=== PATIENT | female | born 1955 | race Caucasian/White ===

== ENCOUNTER 2018-01-31 17:13 | Emergency (ER) | payer MEDICARE, MEDICAID ==
[~2018-01-31] VITALS: Ht 165.1 cm; Wt 81.2 kg
[2018-01-31] MEDS ORDERED: PRAMIPEXOLE DIHYDROCHLORIDE PO (17:43)
--- NOTE | 2018-01-31 18:57 | NUR ---
Patient discharged to home in stable conditon. Written and verbal after care instructions given. Patient verbalizes understanding of instructions.pt walks in steady gait, no sign of distress. pt with family member.
== END 2018-01-31 18:58 | disposition home or self-care (01) ==
LOC: ER 17:13
DX: R05 Cough (principal); Z79.899 Other long term (current) drug therapy
CPT/HCPCS: 99283; A4663

== ENCOUNTER 2020-03-28 17:00 | Inpatient (IN) | payer MEDICARE, OTHER ==
[~2020-03-28] VITALS: Ht 160 cm; Wt 86.2 kg
[~2020-03-28 17:00] MED LIST: PRAMIPEXOLE DIHYDROCHLORIDE PO
[2020-03-28] MEDS ORDERED: PRAM0.253 PO (17:24)
--- NOTE | 2020-03-28 17:29 | NUR ---
Dr Cortes at the bedside for MSE.
--- NOTE | 2020-03-28 17:55 | NUR ---
Patient is resting comfortably in bed with eyes closed, NAD noted.
[2020-03-28 17:58] LABS: CARBON DIOXIDE 25 mmol/L (21-32); CHLORIDE 109 mmol/L (98-107); GLUCOSE 103 mg/dL (74-106); POTASSIUM 3.9 mmol/L (3.5-5.1); UREA NITROGEN, BLOOD 16 mg/dL (7-18)
[2020-03-28 18:10] LABS: ALANINE AMINOTRANSFERASE 15 U/L (14-59); ALKALINE PHOSPHATASE 92 U/L (50-136); ASPARTATE AMINOTRANSFERASE 19 U/L (15-37); BILIRUBIN,DIRECT < 0.1 mg/dL (0.0-0.2); BILIRUBIN,TOTAL 0.1 mg/dL (0.2-1.0); TOTAL PROTEIN, SERUM 6.4 g/dL (6.4-8.2)
[2020-03-28 18:19] LABS: BASOPHILS # (AUTO) 0.1 K/uL (0.0-8.0); BASOPHILS % (AUTO) 1.3 % (0.0-2.0); EOSINOPHILS # (AUTO) 0.1 K/uL (0.0-0.7); EOSINOPHILS % (AUTO) 1.2 % (0.0-7.0); LYMPHOCYTES # (AUTO) 3.1 K/uL (20.0-40.0); LYMPHOCYTES % (AUTO) 37.1 % (20.5-51.5); MEAN CORPUSCULAR HEMOGLOBIN 22.5 uug (24.7-32.8); MEAN CORPUSCULAR HGB CONC 31 g/dL (32.3-35.6); MEAN CORPUSCULAR VOLUME 71.8 fL (75.5-95.3); MONOCYTES # (AUTO) 0.6 K/uL (2.0-10.0); MONOCYTES % (AUTO) 7.1 % (0.0-11.0); NEUTROPHILS # (AUTO) 4.5 K/uL (1.8-8.9); NEUTROPHILS % (AUTO) 53.3 % (38.5-71.5); PLATELET COUNT (AUTO) 455 K/uL (179-408); WHITE BLOOD COUNT (AUTO) 8.4 K/uL (3.8-11.8)
--- NOTE | 2020-03-28 18:20 | NUR ---
Pt out of ER for Xray.
[2020-03-28 18:27] LABS: RED BLOOD CELL COUNT(AUTO) 2.33 MIL/uL (3.63-4.92)
[2020-03-28 18:28] LABS: HEMATOCRIT 16.8 % (31.2-41.9); HEMOGLOBIN 5.3 g/dL (10.9-14.3)
[2020-03-28 18:46] LABS: *BILIRUBIN,URIN NEGATIVE (NEGATIVE); *BLOOD, URINE NEGATIVE (NEGATIVE); *CLARITY,URINE CLEAR (CLEAR); *COLOR,URINE LIGHT YELLOW (YELLOW); *KETONES,URINE NEGATIVE (NEGATIVE); *UROBILINOGEN,URINE 0.2 E.U./dl (NORMAL); LEUKOCYTE ESTERASE ,URINE 2+ (NEGATIVE); NITRITE, URINE NEGATIVE (NEGATIVE); UGLUCOSE NEGATIVE (NEGATIVE)
--- NOTE | 2020-03-28 19:05 | NUR ---
Called [facility] to page Harrison Duval NP.
--- NOTE | 2020-03-28 19:18 | NUR ---
Dr. Adi Ding on panel call with Harrison Duval DNP. Patient accepted for admission to [facility], diagnosis: anemia.
[2020-03-28] MEDS ORDERED: IV NS 1000 ML 1,000 ML IV PRN (20:17)
[2020-03-28] MEDS ORDERED: Z GUARD REMEDY PASTE 57 GM TUBE TOP PRN (20:30)
[2020-03-28] MEDS ORDERED: MORPHINE SULFATE 2 MG/1 ML DISP.SYRIN IV PRN (20:30)
[2020-03-28] MEDS ORDERED: ONDANSETRON 4 MG/2 ML VIAL IV PRN (20:30)
[2020-03-28] MEDS ORDERED: MAGNESIUM HYDROXIDE 30 ML LIQUID UDC PO PRN (20:30)
--- NOTE | 2020-03-28 20:30 | NUR ---
Blood transfusion started at this time, two nurse verified
[2020-03-28 20:34] LABS: IRON, SERUM 8 ug/dL (50-175)
[2020-03-28 20:41] LABS: BACTERIA,URINE 1 /HPF (NONE SEEN); SQUAMOUS EPITHELIAL CELL,UR FEW /HPF (NONE SEEN)
[2020-03-28 20:48] LABS: FERRITIN 4 ng/mL (8-252)
--- NOTE | 2020-03-28 21:15 | NUR ---
Report given to Radha LANG Tele.
--- NOTE | 2020-03-28 21:41 | NUR ---
No adverse reactions to blood transfusion noted
[2020-03-28] MEDS ORDERED: CEFTRIAXONE 1 G in IV DEXTROSE 5% 50 ML IV SCH (22:00)
--- NOTE | 2020-03-28 22:00 | NUR ---
Pt. admitted to Tele unit room 305 , under care of YOBANY Duval, blood transfusion passed on the for receiving nurse to finish. Belongs List completed and all belongings sent with patient t new room
--- NOTE | 2020-03-28 22:01 | NUR ---
RECEIVED PT FROM ER VIA [facility]. UNDER THE CARE OF DR. HIDALGO. DX; ANEMIA. PT AWAKE, ALERT AND ORIENTEDX4. CARE HOME ASSESSMENT DONE. ADMISSION PROCESS AND CARE PLAN INITIATED. BLOOD TRANSFUSION ONGOING AND ABOUT TO FINISH. PT IN NO ACUTE DISTRESS. SAFETY AND COMFORT PROVIDED. WILL CONTINUE TO MONITOR.
--- NOTE | 2020-03-28 22:02 | NUR ---
PT HAS COMPRESSION STOCKINGS. SHE SAID HER DOCTOR WANTS HER TO WEAR IT UNTIL SUNDAY WHERE SHE WILL HAVE HER DR ZELAYA.
[2020-03-28 22:20] VITALS: BP 128/61
--- NOTE | 2020-03-28 22:36 | NUR ---
DR. HIDALGO ORDERED HEMOGLOBIN AND HEMATOCRIT STAT FOR THE PT. INFORMED PT FINISHED HER ONE PRBC. NO ADVERSE REACTION NOTED. PT IN NO ACUTE DISTRESS. WILL CONTINUE TO MONITOR.
[2020-03-28 22:47] LABS: LYMPHOCYTES % (MANUAL) 27 % (20-40); MONOCYTES % (MANUAL) 11 % (2-10); NEUTROPHILS % (MANUAL) 62 % (42-75)
[2020-03-28 23:22] LABS: HEMOGLOBIN 6.4 g/dL (10.9-14.3)
[2020-03-28 23:23] LABS: HEMATOCRIT 20.3 % (31.2-41.9)
--- NOTE | 2020-03-28 23:23 | NUR ---
Lab/Humberto called and reported STAT lab result for Hgb-6.4 and Hct - 20.3. Dr. Duval informed. Awaiting for any new order.
[2020-03-28] MEDS ORDERED: CEFTRIAXONE 1 G VIAL ONE (23:25)
--- NOTE | 2020-03-28 23:31 | NUR ---
Dr. Duval with order to give additional unit of PRBC. Order noted and will carry out. RICKEY canales who is assigned to pt made aware of Dr. Duval's order and states understanding.
[2020-03-28] MEDS: PANTOPRAZOLE SODIUM 40 MG TABLET.DR PO SCH (23:58)
[2020-03-28] MEDS: SUCRALFATE 1 G TABLET PO SCH (23:58)
[2020-03-29] VITALS (12 sets, daily range): BP systolic 122–136; BP diastolic 57–82
--- NOTE | 2020-03-29 03:05 | NUR ---
PT TOLERATED THE BLOOD TRANSFUSION. NO ADVERSE REACTION NOTED. Will continue to monitor.
--- NOTE | 2020-03-29 06:06 | NUR ---
PT SLEPT INTERMITTENTLY. PT IN NO ACUTE DISTRESS. PT COMPLAINING OF HER RESTLESS LEG SYNDROME. PRESCRIBED MEDICATION GIVEN AND PT TOLERATED IT WELL. SAFETY AND COMFORT PROVIDED. WILL ENDORSE TO INCOMING NURSE FOR CONTINUITY OF CARE,
[2020-03-29 06:28] LABS: CREATININE 1.1 mg/dL (0.6-1.3); MAGNESIUM 2.1 mg/dL (1.8-2.4); PHOSPHOROUS 3.6 mg/dL (2.5-4.9); POTASSIUM 3.6 mmol/L (3.5-5.1)
[2020-03-29 06:30] LABS: THYROID STIMULATING HORMONE 0.533 mIU/mL (0.358-3.740)
[2020-03-29] MEDS: SUCRALFATE 1 G TABLET PO SCH ×3 (06:30→16:30)
--- NOTE | 2020-03-29 07:18 | NUR ---
PT MEDICATION MIRAPEX BROUGHT DOWN TO PHARMACY.
[2020-03-29 07:19] LABS: BASOPHILS # (AUTO) 0.1 K/uL (0.0-8.0); EOSINOPHILS # (AUTO) 0.1 K/uL (0.0-0.7); EOSINOPHILS % (AUTO) 1.6 % (0.0-7.0); MEAN CORPUSCULAR HEMOGLOBIN 24.5 uug (24.7-32.8); MONOCYTES # (AUTO) 0.7 K/uL (2.0-10.0); NEUTROPHILS # (AUTO) 5.1 K/uL (1.8-8.9); RED BLOOD CELL COUNT(AUTO) 2.93 MIL/uL (3.63-4.92)
[2020-03-29 07:21] LABS: BASOPHILS % (AUTO) 0.7 % (0.0-2.0); HEMATOCRIT 22.2 % (31.2-41.9); LYMPHOCYTES # (AUTO) 2.8 K/uL (20.0-40.0); LYMPHOCYTES % (AUTO) 31.6 % (20.5-51.5); MEAN CORPUSCULAR HGB CONC 32 g/dL (32.3-35.6); MEAN CORPUSCULAR VOLUME 75.8 fL (75.5-95.3); MONOCYTES % (AUTO) 8.4 % (0.0-11.0); NEUTROPHILS % (AUTO) 57.7 % (38.5-71.5); PLATELET COUNT (AUTO) 385 K/uL (179-408); WHITE BLOOD COUNT (AUTO) 8.8 K/uL (3.8-11.8)
[2020-03-29 07:23] LABS: HEMOGLOBIN 7.2 g/dL (10.9-14.3)
--- NOTE | 2020-03-29 08:00 | NUR ---
received pt. resting in bed alert oriented x4. pt. denies pain/ discomfort. pt. denies sob/ difficulty breathing. pt. saturating well on room air. IV in L hand 20 gauge intact patent running prescribed fluid. pt. had small BM able to use for stool occult. Pt. NPO except meds. HEALTH AND SAFETY TECH Harrison Duval at bedside. safety measures in place. call light within reach. will continue to monitor pt.
[2020-03-29] MEDS: PANTOPRAZOLE SODIUM 40 MG TABLET.DR PO SCH ×2 (08:20→17:00)
--- NOTE | 2020-03-29 12:20 | NUR ---
pt. is upset and wants to eat. Spoke to PLATER BARREL Harrison Duval he is aware and is waiting for GI Dr. Uriarte for stool OB results and possible endoscopy. Updated pt. on plan. pt. understands and just wants to know a time. Will call Dr. Uriarte to see what time he will be able to see pt. pt. stable.
[2020-03-29 12:32] LABS: *OCCULT BLOOD STOOL NEGATIVE (NEGATIVE)
[2020-03-29] MEDS ORDERED: SOD FERRIC GLUC COMPLX/SUCROSE 125 MG in IV NORMAL SALINE 100 ML IV SCH (14:00)
--- NOTE | 2020-03-29 16:43 | NUR ---
pt. is upset with care and wants to eat. printed out educational information on hemoglobin, anemia, and iron deficiency. Tried to figure out what time/ date pt. will be seen by GI doctor. called dr. arndt's office twice with no answer, messaged from charge nurse phone with no answer. pt. wants to leave AMA. She states she has her PCP appointment this week and will have them assess her issues. WRECKING CRANE ENGINE OPERATOR Harrison Duval aware pt. wants to leave AMA.
--- NOTE | 2020-03-29 17:52 | NUR ---
pt. left AMA. pt. signed AMA paperwork. AMA discharge paperwork signed. IV removed. ID band removed.
[2020-03-29] MEDS ORDERED: PRAMIPEXOLE 0.25 MG TABLET PO SCH (18:00)
== END 2020-03-29 17:50 | disposition left against medical advice (07) | DRG 812 ==
LOC: ER 17:07 → TELE3 21:15
PROVIDERS: ADMIT Nurse Practitioner Acute Care; ATTEND Nurse Practitioner Acute Care
PROC: 30233N1 Transfusion of Nonautologous Red Blood Cells into Peripheral Vein, Percutaneous Approach (ICD-10-PCS; principal; 2020-03-28)
DX: D50.9 Iron deficiency anemia, unspecified (principal); E87.0 Hyperosmolality and hypernatremia; N39.0 Urinary tract infection, site not specified; G25.81 Restless legs syndrome; R53.1 Weakness; D47.3 Essential (hemorrhagic) thrombocythemia; K44.9 Diaphragmatic hernia without obstruction or gangrene; E66.9 Obesity, unspecified; Z68.33 Body mass index [BMI] 33.0-33.9, adult; E11.9 Type 2 diabetes mellitus without complications
CPT/HCPCS: 36415; 70030-TC; 71045; 83550; 83605; 83735; 84100; 84443; 85018; 85025; 85730; 86850; 86900; 86901; 86920; 87040; 87086; 93005; A4663; G0378; J0696; J2916; J3490; J7030; J7040; J7060; P9016-BL; P9021

== ENCOUNTER 2021-01-09 13:32 | Inpatient (IN) | payer MEDICARE, OTHER ==
[~2021-01-09] VITALS: Ht 162.6 cm; Wt 86.2 kg
[~2021-01-09 13:32] MED LIST changes: +PRAM0.253 PO; -PRAMIPEXOLE DIHYDROCHLORIDE PO
[2021-01-09] MEDS ORDERED: IV NORMAL SALINE 1000 ML BAG IV ONE (13:45)
--- NOTE | 2021-01-09 14:15 | NUR ---
Pt refused to have EKG, Dr De Souza made aware.
[2021-01-09 14:18] LABS: ABG BASE EXCESS -2.7 mmol/L; ABG HCO3 20.6 mmol/L; ABG PCO2 31.2 mmHg (35.0-45.0); ABG PH 7.437 (7.350-7.450); ABG SITE RIGHT RADIAL; ABG TOTAL HEMOGLOBIN 12.5 G/dL (12.0-16.0); MetHb 0.2 % (0.0-1.5); VENT MODE room air
[2021-01-09 14:27] LABS: *BILIRUBIN,URIN NEGATIVE (NEGATIVE); *CLARITY,URINE CLEAR (CLEAR); *COLOR,URINE YELLOW (YELLOW); *KETONES,URINE NEGATIVE (NEGATIVE); *UROBILINOGEN,URINE 0.2 E.U./dl (NORMAL); BASOPHILS # (AUTO) 0.2 K/uL (0.0-8.0); EOSINOPHILS # (AUTO) 0.1 K/uL (0.0-0.7); EOSINOPHILS % (AUTO) 0.7 % (0.0-7.0); HEMATOCRIT 35.4 % (31.2-41.9); HEMOGLOBIN 11.7 g/dL (10.9-14.3); LEUKOCYTE ESTERASE ,URINE NEGATIVE (NEGATIVE); LYMPHOCYTES # (AUTO) 2.4 K/uL (20.0-40.0); LYMPHOCYTES % (AUTO) 13.3 % (20.5-51.5); MEAN CORPUSCULAR HEMOGLOBIN 26.8 uug (24.7-32.8); MEAN CORPUSCULAR HGB CONC 33 g/dL (32.3-35.6); MEAN CORPUSCULAR VOLUME 81.4 fL (75.5-95.3); MONOCYTES # (AUTO) 1.7 K/uL (2.0-10.0); MONOCYTES % (AUTO) 9.4 % (0.0-11.0); NEUTROPHILS # (AUTO) 13.3 K/uL (1.8-8.9); NEUTROPHILS % (AUTO) 75.6 % (38.5-71.5); NITRITE, URINE NEGATIVE (NEGATIVE); PH,URINE 5.5 (5.0-8.0); RED BLOOD CELL COUNT(AUTO) 4.35 MIL/uL (3.63-4.92); UGLUCOSE NEGATIVE (NEGATIVE)
--- NOTE | 2021-01-09 14:28 | NUR ---
Dr De Souza at the bedside for MSE.
[2021-01-09 14:31] LABS: PLATELET COUNT (AUTO) 645 K/uL (179-408); WHITE BLOOD COUNT (AUTO) 17.6 K/uL (3.8-11.8)
[2021-01-09 14:43] LABS: *BLOOD, URINE TRACE (NEGATIVE)
[2021-01-09] MEDS ORDERED: IV NORMAL SALINE 500 ML IV ONE (14:45)
[2021-01-09] MEDS ORDERED: CEFTRIAXONE 1 G in IV DEXTROSE 5% 50 ML IV ONE (14:45)
[2021-01-09] MEDS ORDERED: ACETAMINOPHEN ES 500 MG TABLET PO ONE (14:45)
[2021-01-09] MEDS ORDERED: IV LACTATED RINGERS SOLUTION 1,000 ML IV PRN (14:45)
[2021-01-09] MEDS ORDERED: AZITHROMYCIN 250 MG TABLET PO ONE (14:45)
[2021-01-09] MEDS ORDERED: ACETAMINOPHEN ES 500 MG TABLET ONE (14:53)
[2021-01-09] MEDS ORDERED: AZITHROMYCIN 250 MG TABLET ONE (14:53)
[2021-01-09] MEDS ORDERED: CEFTRIAXONE 1 G VIAL ONE (14:53)
[2021-01-09 15:04] LABS: CREATININE 0.9 mg/dL (0.6-1.3)
[2021-01-09 15:20] LABS: BILIRUBIN,DIRECT 0.2 mg/dL (0.0-0.2); BILIRUBIN,TOTAL 0.4 mg/dL (0.2-1.0); TOTAL PROTEIN, SERUM 7.6 g/dL (6.4-8.2)
[2021-01-09 15:40] LABS: BACTERIA,URINE NONE SEEN /HPF (NONE SEEN); RBC,URINE 0-3 /HPF (0-3); WBC,URINE 0-3 /HPF (0-3)
[2021-01-09 15:41] LABS: SQUAMOUS EPITHELIAL CELL,UR NONE SEEN /HPF (NONE SEEN)
[2021-01-09] MEDS ORDERED: BUPRENORPHINE HCL 8 MG TAB.SUBL SL ONE (16:00)
[2021-01-09] MEDS ORDERED: MAGNESIUM HYDROXIDE 30 ML LIQUID UDC PO PRN (16:15)
[2021-01-09] MEDS ORDERED: ONDANSETRON 4 MG/2 ML VIAL IV PRN (16:15)
[2021-01-09] MEDS ORDERED: Z GUARD REMEDY PASTE 57 GM TUBE TOP PRN (16:15)
--- NOTE | 2021-01-09 16:20 | NUR ---
RECEIVED FOR ADMISSION 65 YEARS OLD FEMALE FROM EMERGENCY ROOM WITH DX OF PNEUMONIA BY LD TO ROOM 310 PLACED INTO BED FIXED AND MADE COMFORTABLE PATIENT IS ALERT AND ORIENTED ORIENTED TO ROOM AND FACILITY PROTOCOL HAS IVF IN PROGRESS TO HER RIGHT FOREARM ON O2 WITH SATS AT 95 PERCENT DIONNE GERARDO HERE WITH ORDERS.
[2021-01-09] MEDS: IV NS 1000 ML 1,000 ML IV PRN (16:44)
[2021-01-09 16:48] VITALS: BP 152/88
[2021-01-09] MEDS ORDERED: ENOXAPARIN SODIUM 40 MG/0.4 ML DISP.SYRIN SQ SCH (17:00)
[2021-01-09] MEDS: HYDROCODONE/APAP 5-325MG TABLET PO PRN (17:04)
[2021-01-09] MEDS: PRAMIPEXOLE 0.25 MG TABLET PO SCH (17:04)
--- NOTE | 2021-01-09 18:08 | NUR ---
PATIENT STATED THAT NORCO ORDERED WAS NOT EFFECTIVE DIONNE NOTIFIED AWAITING FOR ORDERS.
[2021-01-09] MEDS: HYDROMORPHONE 1 MG/1 ML DISP.SYRIN IV PRN ×2 (18:40→23:46)
--- NOTE | 2021-01-09 18:44 | NUR ---
MEDICATED WITH DILAUDID ONE MG NEW IV SITE INSERTED TO HER RIGHT WRIST GAUGE THE OLD ONE KEPT ON BEEPING EVEN THOUGH ITS PATENT.
--- NOTE | 2021-01-09 19:05 | NUR ---
Received patient sitting up in bed. Patient is A/O x4 and complaining of sharp right underbreast pain. Patient had already been given a [place] @1700 and a hydromorphone dose @1840. Patient told to try repositioning to see if that alleviates the pain. Patient not really compliant and just continues to complain without attempting repositioning. patient would also not allow direct assessment of the area by either me or her female MOBILE HOME SET UP PERSON. Other than this complaint. Patient is doing well, no other signs of distress or SOB.
--- NOTE | 2021-01-09 19:48 | NUR ---
I caught the patient with home medications. It is unclear how she was able to hide these without the ER and the floor nursing staff from finding them. I confiscated a bag with 2 bottles, but i suspect she may be hiding additional medication, though she denies this. I explained to the patient the seriousness of turning over allo medications as they may react with medications we are giving her during her stay. She understands the risks I explained and she is adamant that she DOES NOT have any additional pills. Patient will be going down to [place] soon and I will conduct a through search for medications hidden in her room while she is gone.
[2021-01-09 20:15] VITALS: BP 155/84
[2021-01-09] MEDS ORDERED: SWABABLE VALVE TRANSFER SET EA MC ONE (20:22)
[2021-01-09] MEDS ORDERED: IV NORMAL SALINE 250 ML IV ONE (20:22)
[2021-01-09] MEDS ORDERED: IOHEXOL 350 100 ML INFUS..BTL ONE (20:22)
--- NOTE | 2021-01-09 20:32 | NUR ---
Patient appears to complain of the right chest pain only when i am present. She seems to start complaining about the pain, grasping at the site, moaning, and complaining she cannot breathe, and the longer i stand there the worse it seems to get, however as soon as I step out of the room, this immediately stops and she picks up her cell phone and begins texting like nothing is wrong, no expressions of pain, no moaning, no grasping at the site, no signs of SOB or any distress whatsoever. I went back in to have the patient sign the consent for the CT angio, and the patient immediately began complaining of the pain, grasping at the site and complaining of difficulty breathing. Patient signed the consent and she was back on the phone before i had even got to the door on my way out, seemingly perfectly fine again. This nurse is not discounting that this pain exists, however it seems that the patient is making it out to be worse than it is. I explained that her CT may possibly show anything that is wrong with the site in an attempt to put her at ease.
--- NOTE | 2021-01-09 22:50 | NUR ---
Relayed results of the CT angio to Anila Jay NP. Orders to change Lovenox to 40mg prophylactic dose.
[2021-01-10 00:09] VITALS: BP 121/79
[2021-01-10 04:15] VITALS: BP 126/77
--- NOTE | 2021-01-10 04:56 | NUR ---
Patient's cough has turned productive with thick dark guzmán coloration. Specimen collected for culture.
[2021-01-10 06:31] LABS: BASOPHILS # (AUTO) 0.1 K/uL (0.0-8.0); BASOPHILS % (AUTO) 0.6 % (0.0-2.0); EOSINOPHILS # (AUTO) 0.2 K/uL (0.0-0.7); EOSINOPHILS % (AUTO) 1.3 % (0.0-7.0); HEMATOCRIT 30.9 % (31.2-41.9); LYMPHOCYTES # (AUTO) 2.3 K/uL (20.0-40.0); LYMPHOCYTES % (AUTO) 17.5 % (20.5-51.5); MEAN CORPUSCULAR HEMOGLOBIN 26.8 uug (24.7-32.8); MEAN CORPUSCULAR HGB CONC 32 g/dL (32.3-35.6); MEAN CORPUSCULAR VOLUME 82.9 fL (75.5-95.3); MONOCYTES # (AUTO) 1.2 K/uL (2.0-10.0); MONOCYTES % (AUTO) 9.4 % (0.0-11.0); NEUTROPHILS # (AUTO) 9.4 K/uL (1.8-8.9); NEUTROPHILS % (AUTO) 71.2 % (38.5-71.5); PLATELET COUNT (AUTO) 543 K/uL (179-408); RED BLOOD CELL COUNT(AUTO) 3.73 MIL/uL (3.63-4.92); WHITE BLOOD COUNT (AUTO) 13.2 K/uL (3.8-11.8)
[2021-01-10] MEDS: PANTOPRAZOLE SODIUM 40 MG TABLET.DR PO SCH (06:35)
[2021-01-10] MEDS ORDERED: PANTOPRAZOLE SODIUM 40 MG TABLET.DR PO SCH (07:00)
--- NOTE | 2021-01-10 07:30 | NUR ---
RECEIVED PATIENT IN BED AWAKE ALERT SITTING UP WITH FEET DANGLING ON THE FLOOR STATED THAT SHE IS MORE COMFORTABLE WHEN SITTING UP ON O2 WITH NO SOB AT THIS TIME.IVF IN PROGRESS ORDERED CALL LIGHTS AND PERSONAL BELONGINGS ARE WITHIN EASY REACH WILL CONTINUE TO OBSERVE.
[2021-01-10 07:33] LABS: CREATININE 0.8 mg/dL (0.6-1.3); MAGNESIUM 2.2 mg/dL (1.8-2.4); PHOSPHOROUS 3.6 mg/dL (2.5-4.9); POTASSIUM 4.4 mmol/L (3.5-5.1)
--- NOTE | 2021-01-10 08:28 | NUR ---
PATIENT SEEN AND EXAMINED BY ZAY AGUIRRE SPACE ENGINEER WITH HEW ORDERS AND NOTED.
[2021-01-10] MEDS: CYCLOBENZAPRINE HCL 10 MG TABLET PO PRN ×2 (08:36→18:13)
[2021-01-10] MEDS: IV NS 1000 ML 1,000 ML IV PRN (09:14)
[2021-01-10] MEDS: HYDROMORPHONE 1 MG/1 ML DISP.SYRIN IV PRN ×3 (09:20→20:57)
--- NOTE | 2021-01-10 10:00 | NUR ---
DR CROCKER HERE TO SEE PATIENT WITH NEW ORDERS AND NOTED.
[2021-01-10] MEDS: LIDOCAINE 5% PATCH TD SCH (10:15)
[2021-01-10] MEDS: IPRATROPIUM BROMIDE 0.5 MG/2.5 ML NEBU NEB SCH ×3 (11:26→20:04)
[2021-01-10] MEDS: ALBUTEROL SULFATE 2.5 MG/3 ML NEBU NEB SCH ×3 (11:27→20:04)
--- NOTE | 2021-01-10 11:27 | NUR ---
CALL RECEIVED FROM THE [employer] STATED WILL DO ABDOMINAL ULTRA SOUND IN THE MORNING STATED PATIENT HAS TO BE NOTHING BY MOUTH FOR AT LEAST 8 HOURS WILL EDUCATE PATIENT ON THE NEED FOR NPO AFTER MID NITE.
[2021-01-10 12:00] VITALS: BP 143/72
[2021-01-10] MEDS: AZITHROMYCIN IV 500 MG in IV DEXTROSE 5% 250 ML IV SCH (14:07)
[2021-01-10] MEDS: HYDROCODONE/APAP 5-325MG TABLET PO PRN (14:07)
[2021-01-10] MEDS: CEFTRIAXONE 1 G in IV DEXTROSE 5% 50 ML IV SCH (15:13)
[2021-01-10 16:00] VITALS: BP 134/80
[2021-01-10] MEDS: PRAMIPEXOLE 0.25 MG TABLET PO SCH (17:08)
--- NOTE | 2021-01-10 19:30 | NUR ---
RECEIVED PT AWAKE, ALERT AND ORIENTEDX4. PT IN NO ACUTE DISTRESS. IV INTACT. SAFETY AND COMFORT PROVIDED. WILL CONTINUE TO MONITOR.
[2021-01-10 20:00] VITALS: BP 129/67
[2021-01-10] MEDS: ACETAMINOPHEN 325 MG TABLET PO PRN (20:51)
[2021-01-10] MEDS: ENOXAPARIN SODIUM 40 MG/0.4 ML DISP.SYRIN SQ SCH (20:56)
--- NOTE | 2021-01-10 20:57 | NUR ---
DILAUDID 1MG PRN GIVEN TO THE PT FOR PAIN ON HER WAIST AND CHEST. PT TOLERATED IT WELL. WILL CONTINUE TO MONITOR.
--- NOTE | 2021-01-10 21:57 | NUR ---
PT STATED HER PAIN IS BETTER AFTER THE MEDICATION. PT STABLE. WILL CONTINUE TO MONITOR.
--- NOTE | 2021-01-10 22:00 | NUR ---
PT REFUSED HER LOVENOX MEDICATION STATED SHE DOESN'T WANT IT. THE MEDICATION WAS OPENED ALREADY SO I WILL WASTE IT IN THE MEDICATION ROOM WITH ANOTHER RN.
[2021-01-11 00:03] VITALS: BP 135/81
[2021-01-11] MEDS: IV NS 1000 ML 1,000 ML IV PRN ×2 (00:26→15:17)
[2021-01-11] MEDS: HYDROMORPHONE 1 MG/1 ML DISP.SYRIN IV PRN ×3 (01:34→19:51)
--- NOTE | 2021-01-11 01:34 | NUR ---
DILAUDID 1MG PRN GIVEN TO PT FOR HER PAIN ON HER CHEST AND WAIST.PT TOLERATED IT WELL. WILL CONTINUE TO MONITOR.
[2021-01-11 04:12] VITALS: BP 124/68
--- NOTE | 2021-01-11 06:10 | NUR ---
PT SLEPT INTERMITTENTLY. PT IN NO ACUTE DISTRESS. PRESCRIBED MEDICATION GIVEN AND PT TOLERATED IT WELL. IV INTACT. PT ON 2L NASAL CANNULA. PRN MEDICATIONS GIVEN. PT TOLERATED IT WELL. SAFETY AND COMFORT PROVIDED. ALL NEEDS ARE MET. WILL ENDORSE TO INCOMING NURSE FOR CONTINUITY OF CARE.
[2021-01-11] MEDS: PANTOPRAZOLE SODIUM 40 MG TABLET.DR PO SCH ×2 (07:00→16:37)
--- NOTE | 2021-01-11 07:00 | NUR ---
PROTONIX HELD BECAUSE PT IS ON NPO FOR ULTRASOUND ABDOMEN.
[2021-01-11 07:11] LABS: BASOPHILS # (AUTO) 0.1 K/uL (0.0-8.0); BASOPHILS % (AUTO) 0.5 % (0.0-2.0); BILIRUBIN,DIRECT 0.1 mg/dL (0.0-0.2); BILIRUBIN,TOTAL 0.4 mg/dL (0.2-1.0); CREATININE 0.7 mg/dL (0.6-1.3); EOSINOPHILS # (AUTO) 0.2 K/uL (0.0-0.7); EOSINOPHILS % (AUTO) 1.3 % (0.0-7.0); HEMATOCRIT 28.4 % (31.2-41.9); HEMOGLOBIN 9.3 g/dL (10.9-14.3); LYMPHOCYTES # (AUTO) 2.3 K/uL (20.0-40.0); LYMPHOCYTES % (AUTO) 18.2 % (20.5-51.5); MEAN CORPUSCULAR HEMOGLOBIN 27.2 uug (24.7-32.8); MEAN CORPUSCULAR HGB CONC 33 g/dL (32.3-35.6); MEAN CORPUSCULAR VOLUME 83.1 fL (75.5-95.3); MONOCYTES # (AUTO) 1.3 K/uL (2.0-10.0); MONOCYTES % (AUTO) 10.4 % (0.0-11.0); NEUTROPHILS # (AUTO) 8.8 K/uL (1.8-8.9); NEUTROPHILS % (AUTO) 69.6 % (38.5-71.5); PLATELET COUNT (AUTO) 576 K/uL (179-408); POTASSIUM 4.1 mmol/L (3.5-5.1); RED BLOOD CELL COUNT(AUTO) 3.42 MIL/uL (3.63-4.92); TOTAL PROTEIN, SERUM 6.7 g/dL (6.4-8.2); WHITE BLOOD COUNT (AUTO) 12.6 K/uL (3.8-11.8)
[2021-01-11] MEDS: ALBUTEROL SULFATE 2.5 MG/3 ML NEBU NEB SCH ×4 (09:10→19:41)
[2021-01-11] MEDS: IPRATROPIUM BROMIDE 0.5 MG/2.5 ML NEBU NEB SCH ×4 (09:10→19:41)
[2021-01-11] MEDS: LIDOCAINE 5% PATCH TD SCH (09:16)
--- NOTE | 2021-01-11 09:30 | NUR ---
ULTRA SOUND OF THE ABDOMEN COMPLETED ORDERED DIETARY NOTIFIED AND THEY WILL SEND HER BREAKFAST.
[2021-01-11] MEDS ORDERED: LACTULOSE 20 G/30 ML LIQUID UDC PO PRN (11:15)
[2021-01-11 11:48] VITALS: BP 153/83
[2021-01-11 12:00] VITALS: BP 149/85
[2021-01-11] MEDS: DOCUSATE SODIUM 100 MG CAPSULE PO SCH ×2 (12:23→20:02)
--- NOTE | 2021-01-11 13:02 | NUR ---
PATIENT SEEN AND EXAMINED BY KATHERINE GERARDO BOWLING BALL MOLDER WITH NEW ORDERS.
[2021-01-11] MEDS: AZITHROMYCIN IV 500 MG in IV DEXTROSE 5% 250 ML IV SCH (14:18)
[2021-01-11 14:35] LABS: HEPATITIS A AB, IgM NEGATIVE; HEPATITIS A AB, TOTAL NEGATIVE; HEPATITIS B SURFACE AB NON REACTIVE
[2021-01-11 16:00] VITALS: BP 149/85
[2021-01-11] MEDS: CEFTRIAXONE 1 G in IV DEXTROSE 5% 50 ML IV SCH (16:37)
[2021-01-11] MEDS: PRAMIPEXOLE 0.25 MG TABLET PO SCH (17:20)
--- NOTE | 2021-01-11 17:32 | NUR ---
REMAIN ON PAIN MANAGEMENT ORDERED OCCASSIONAL COUGH EPISODES AMBULATORY TO AND FROM THE BATHROOM WITH MIN ASSIST REMAIN ON ATB AND IVF ORDERED WITH NO ADVERSE OR ALLERGIC REACTIONS AT THIS TIME.MADE COMFORTABLE WILL CONTINUE TO OBSERVE NOT IN DISTRESS AT THIS TIME WILL CONTINUE TO OBSERVE.
[2021-01-11] MEDS: ACETAMINOPHEN 325 MG TABLET PO PRN (19:49)
[2021-01-11] MEDS: ENOXAPARIN SODIUM 40 MG/0.4 ML DISP.SYRIN SQ SCH (20:02)
[2021-01-11 20:06] VITALS: BP 151/72
--- NOTE | 2021-01-11 22:00 | NUR ---
PT REFUSED LIDODERM PATCH REMOVED
[2021-01-12 00:44] VITALS: BP 121/80
[2021-01-12] MEDS: HYDROMORPHONE 1 MG/1 ML DISP.SYRIN IV PRN ×6 (01:44→23:41)
[2021-01-12 04:30] VITALS: BP 142/77
[2021-01-12] MEDS: IV NS 1000 ML 1,000 ML IV PRN ×2 (04:55→21:04)
[2021-01-12] MEDS: PANTOPRAZOLE SODIUM 40 MG TABLET.DR PO SCH ×2 (05:10→16:17)
--- NOTE | 2021-01-12 05:20 | NUR ---
Patient rested well in between care; c/o pain and addressed accordingly with good results; R arm ivx2 dcd ; new iv to left forearm g 22; needs attended; continue to monitor; continue plan of care.
--- NOTE | 2021-01-12 07:35 | NUR ---
Received patient awake in bed. AOx4. on 2L O2 via NC. no signs of acute distress. patient with left FA #22 gauge with NS running at 75cc/hr. bed locked and in low position for safety. call light within reach. will continue to monitor.
[2021-01-12] MEDS: IPRATROPIUM BROMIDE 0.5 MG/2.5 ML NEBU NEB SCH ×4 (07:51→20:49)
[2021-01-12] MEDS: ALBUTEROL SULFATE 2.5 MG/3 ML NEBU NEB SCH ×4 (07:51→20:49)
[2021-01-12] MEDS: LIDOCAINE 5% PATCH TD SCH (08:40)
[2021-01-12] MEDS: DOCUSATE SODIUM 100 MG CAPSULE PO SCH ×2 (08:40→20:08)
[2021-01-12 11:32] VITALS: BP 162/91
[2021-01-12] MEDS: ACETAMINOPHEN 325 MG TABLET PO PRN ×2 (14:51→19:37)
[2021-01-12] MEDS: AZITHROMYCIN IV 500 MG in IV DEXTROSE 5% 250 ML IV SCH (15:04)
[2021-01-12 15:11] VITALS: BP 141/63
[2021-01-12] MEDS: CEFTRIAXONE 1 G in IV DEXTROSE 5% 50 ML IV SCH (16:10)
[2021-01-12] MEDS: PRAMIPEXOLE 0.25 MG TABLET PO SCH (17:03)
--- NOTE | 2021-01-12 18:30 | NUR ---
No significant changes during shift. AOx4. On 2L O2 via NC. Patient complained of pain. Pain medication given as ordered. Compliant with medication and care. Safety measures provided. Needs met. Will endorse to incoming shift.
--- NOTE | 2021-01-12 19:30 | NUR ---
RECEIVED PT IN NO ACUTE RESPIRATORY DISTRESS. IV INTACT.SAFETY AND COMFORT PROVIDED. PT COMPLAINING OF PAIN AND WANTS HER PAIN MEDICATION. WILL CONTINUE TO MONITOR.
--- NOTE | 2021-01-12 19:37 | NUR ---
TYLENOL PRN GIVEN FOR TEMPERATURE OF 99.5. COOLING MEASURES DONE. WILL CONTINUE TO MONITOR.
[2021-01-12] MEDS: ENOXAPARIN SODIUM 40 MG/0.4 ML DISP.SYRIN SQ SCH (20:09)
[2021-01-12 20:10] VITALS: BP 134/66
--- NOTE | 2021-01-12 21:05 | NUR ---
PT REFUSED LOVENOX MEDICATION.
--- NOTE | 2021-01-12 21:09 | NUR ---
AT 1936H DILAUDID PRN GIVEN FOR 10/10 PAIN SCALE FOR GENERALIZED PAIN. MEDICATION EFFECTIVE AFTER AN HOUR PER PT WAS SLEEPING COMFORTABLY. WILL CONTINUE TO MONITOR.
--- NOTE | 2021-01-12 21:30 | NUR ---
PT AFEBRILE. PT TEMPERATURE IS 98.9. WILL CONTINUE TO MONITOR.
[2021-01-12] MEDS ORDERED: LIDOCAINE 5% PATCH TD ONE (22:00)
[2021-01-12] MEDS ORDERED: CEFEPIME HCL 1 G VIAL ONE (22:33)
[2021-01-12] MEDS: CEFEPIME HCL 1 G in IV DEXTROSE 5% 50 ML IV SCH (22:43)
[2021-01-13] MEDS ORDERED: CEFEPIME HCL 1 G VIAL ONE (00:37)
[2021-01-13 04:10] VITALS: BP 109/63
[2021-01-13] MEDS: CEFEPIME HCL 1 G in IV DEXTROSE 5% 50 ML IV SCH ×3 (05:43→21:33)
--- NOTE | 2021-01-13 05:56 | NUR ---
PT SLEPT INTERMITTENTLY. PT IN NO ACUTE DISTRESS. IV INTACT. PRESCRIBED MEDICATION GIVEN AND PT TOLERATED IT WELL.PT GIVE DILAUDID PRN AT 2341H. PT TOLERATED IT WELL. AT 2148H JAN ABBOTT NP ORDERED ONE TIME LIDOCAINE PATCH FOR THE PT. PUT COLD COMPRESS ON THE BACK OF THE PT ASIDE FROM THE LIDOCAINE PATCH. PT IN NO ACUTE RESPIRATORY DISTRESS. SAFETY AND COMFORT PROVIDED. WILL ENDORSE TO INCOMING NURSE FOR CONTINUITY OF CARE.
[2021-01-13] MEDS: PANTOPRAZOLE SODIUM 40 MG TABLET.DR PO SCH ×2 (06:12→16:01)
[2021-01-13 07:02] LABS: CREATININE 0.8 mg/dL (0.6-1.3); MAGNESIUM 2.4 mg/dL (1.8-2.4); PHOSPHOROUS 3.1 mg/dL (2.5-4.9)
[2021-01-13] MEDS: ALBUTEROL SULFATE 2.5 MG/3 ML NEBU NEB SCH ×4 (07:35→20:40)
[2021-01-13] MEDS: IPRATROPIUM BROMIDE 0.5 MG/2.5 ML NEBU NEB SCH ×4 (07:35→20:40)
[2021-01-13] MEDS: DOCUSATE SODIUM 100 MG CAPSULE PO SCH ×2 (08:06→20:19)
[2021-01-13] MEDS: LIDOCAINE 5% PATCH TD SCH (08:06)
[2021-01-13] MEDS: HYDROCODONE/APAP 5-325MG TABLET PO PRN (08:45)
[2021-01-13 11:47] VITALS: BP 140/79
[2021-01-13] MEDS: IV NS 1000 ML 1,000 ML IV PRN (13:20)
[2021-01-13] MEDS: HYDROMORPHONE 1 MG/1 ML DISP.SYRIN IV PRN ×2 (13:26→19:38)
[2021-01-13] MEDS: AZITHROMYCIN IV 500 MG in IV DEXTROSE 5% 250 ML IV SCH (14:26)
[2021-01-13 15:18] LABS: BASOPHILS # (AUTO) 0.1 K/uL (0.0-8.0); BASOPHILS % (AUTO) 0.4 % (0.0-2.0); EOSINOPHILS # (AUTO) 0.3 K/uL (0.0-0.7); HEMATOCRIT 29.9 % (31.2-41.9); HEMOGLOBIN 9.7 g/dL (10.9-14.3); LYMPHOCYTES # (AUTO) 2.2 K/uL (20.0-40.0); LYMPHOCYTES % (AUTO) 15.5 % (20.5-51.5); MEAN CORPUSCULAR HEMOGLOBIN 26.8 uug (24.7-32.8); MEAN CORPUSCULAR HGB CONC 32 g/dL (32.3-35.6); MEAN CORPUSCULAR VOLUME 82.7 fL (75.5-95.3); MONOCYTES # (AUTO) 1.5 K/uL (2.0-10.0); MONOCYTES % (AUTO) 10.1 % (0.0-11.0); NEUTROPHILS # (AUTO) 10.3 K/uL (1.8-8.9); PLATELET COUNT (AUTO) 657 K/uL (179-408); RED BLOOD CELL COUNT(AUTO) 3.62 MIL/uL (3.63-4.92); WHITE BLOOD COUNT (AUTO) 14.4 K/uL (3.8-11.8)
[2021-01-13 15:56] VITALS: BP 163/83
[2021-01-13] MEDS: CYCLOBENZAPRINE HCL 10 MG TABLET PO PRN (17:04)
[2021-01-13] MEDS: PRAMIPEXOLE 0.25 MG TABLET PO SCH (17:04)
[2021-01-13 20:15] VITALS: BP 156/80
[2021-01-13] MEDS: ENOXAPARIN SODIUM 40 MG/0.4 ML DISP.SYRIN SQ SCH (20:19)
[2021-01-14] MEDS: HYDROMORPHONE 1 MG/1 ML DISP.SYRIN IV PRN ×3 (00:59→21:08)
[2021-01-14 04:20] VITALS: BP 118/53
--- NOTE | 2021-01-14 05:27 | NUR ---
Pt slept intermittently throughout the night. Pt coughed periodically, offered to try and obtain order for cough medication, pt declined. Encouraged to use incentive spirometer. Wheezing heard on lung auscultation. IV site intact and patent. Tolerated all medications given. Safety and comfort provided. No other issues or concerns at this time, will endorse to day shift.
[2021-01-14] MEDS: CEFEPIME HCL 1 G in IV DEXTROSE 5% 50 ML IV SCH ×3 (05:49→21:07)
[2021-01-14] MEDS: IV NS 1000 ML 1,000 ML IV PRN ×2 (05:51→21:15)
[2021-01-14] MEDS: PANTOPRAZOLE SODIUM 40 MG TABLET.DR PO SCH ×2 (06:04→16:12)
[2021-01-14] MEDS: IPRATROPIUM BROMIDE 0.5 MG/2.5 ML NEBU NEB SCH ×4 (07:28→19:46)
[2021-01-14] MEDS: ALBUTEROL SULFATE 2.5 MG/3 ML NEBU NEB SCH ×4 (07:29→19:46)
[2021-01-14] MEDS: DOCUSATE SODIUM 100 MG CAPSULE PO SCH ×2 (08:01→20:46)
[2021-01-14] MEDS: LIDOCAINE 5% PATCH TD SCH (08:01)
[2021-01-14] MEDS: HYDROCODONE/APAP 5-325MG TABLET PO PRN (11:12)
[2021-01-14 11:52] VITALS: BP 147/88
[2021-01-14 15:14] VITALS: BP 140/78
[2021-01-14] MEDS: PRAMIPEXOLE 0.25 MG TABLET PO SCH (17:38)
[2021-01-14 20:09] VITALS: BP 143/88
[2021-01-14] MEDS: BENZONATATE 100 MG CAPSULE PO PRN (20:46)
[2021-01-14] MEDS: ACETAMINOPHEN 325 MG TABLET PO PRN (20:46)
[2021-01-14] MEDS: ENOXAPARIN SODIUM 40 MG/0.4 ML DISP.SYRIN SQ SCH (20:52)
[2021-01-15 04:12] VITALS: BP 136/74
--- NOTE | 2021-01-15 05:13 | NUR ---
Pt slept intermittently throughout the night. Magdi Foster ordered for pt to help with cough. Tolerated well. Tolerated all medications given. Pain medications given periodically upon patient request. Oxygen at 2L, sating at 97%. Safety and comfort provided. No other issues or concerns at this time. Call light within reach. Will endorse to day shift.
[2021-01-15] MEDS: CEFEPIME HCL 1 G in IV DEXTROSE 5% 50 ML IV SCH ×3 (06:07→22:03)
[2021-01-15] MEDS: PANTOPRAZOLE SODIUM 40 MG TABLET.DR PO SCH ×2 (06:07→16:12)
[2021-01-15 06:18] LABS: BASOPHILS # (AUTO) 0.1 K/uL (0.0-8.0); BASOPHILS % (AUTO) 0.6 % (0.0-2.0); EOSINOPHILS # (AUTO) 0.3 K/uL (0.0-0.7); EOSINOPHILS % (AUTO) 2.2 % (0.0-7.0); HEMATOCRIT 28.3 % (31.2-41.9); HEMOGLOBIN 9.1 g/dL (10.9-14.3); LYMPHOCYTES # (AUTO) 2.3 K/uL (20.0-40.0); LYMPHOCYTES % (AUTO) 18.2 % (20.5-51.5); MEAN CORPUSCULAR HEMOGLOBIN 26.1 uug (24.7-32.8); MEAN CORPUSCULAR HGB CONC 32 g/dL (32.3-35.6); MEAN CORPUSCULAR VOLUME 81.3 fL (75.5-95.3); MONOCYTES # (AUTO) 1.4 K/uL (2.0-10.0); MONOCYTES % (AUTO) 10.7 % (0.0-11.0); NEUTROPHILS # (AUTO) 8.7 K/uL (1.8-8.9); NEUTROPHILS % (AUTO) 68.3 % (38.5-71.5); PLATELET COUNT (AUTO) 652 K/uL (179-408); RED BLOOD CELL COUNT(AUTO) 3.48 MIL/uL (3.63-4.92); WHITE BLOOD COUNT (AUTO) 12.8 K/uL (3.8-11.8)
[2021-01-15 06:32] LABS: CREATININE 0.8 mg/dL (0.6-1.3); PHOSPHOROUS 3.4 mg/dL (2.5-4.9); POTASSIUM 3.8 mmol/L (3.5-5.1)
[2021-01-15] MEDS: DOCUSATE SODIUM 100 MG CAPSULE PO SCH ×2 (08:01→20:57)
[2021-01-15] MEDS: LIDOCAINE 5% PATCH TD SCH (08:01)
[2021-01-15] MEDS: ALBUTEROL SULFATE 2.5 MG/3 ML NEBU NEB SCH ×4 (08:26→19:39)
[2021-01-15] MEDS: IPRATROPIUM BROMIDE 0.5 MG/2.5 ML NEBU NEB SCH ×4 (08:26→19:39)
[2021-01-15 12:00] VITALS: BP 135/56
[2021-01-15] MEDS: IV NS 1000 ML 1,000 ML IV PRN (13:41)
[2021-01-15] MEDS: BENZONATATE 100 MG CAPSULE PO PRN (13:45)
[2021-01-15 15:27] VITALS: BP 176/86
[2021-01-15] MEDS: PRAMIPEXOLE 0.25 MG TABLET PO SCH (17:01)
--- NOTE | 2021-01-15 19:00 | NUR ---
RECD PT IN BED, ALERT AND ORIENTED, NO ACUTE DISTRESS NOTEDNEEDS ATTENDED TO, VITAL SIGNS TAKEN AND RECORDED.NO VOICED COMPLAINTS PRESENTED AT THIS TIME.
[2021-01-15 20:00] VITALS: BP 138/82
[2021-01-15] MEDS: ENOXAPARIN SODIUM 40 MG/0.4 ML DISP.SYRIN SQ SCH (20:58)
[2021-01-15] MEDS: HYDROMORPHONE 1 MG/1 ML DISP.SYRIN IV PRN (21:01)
--- NOTE | 2021-01-15 21:02 | NUR ---
MEDICATED W/DILAUDID 1 MG IV FOR BACK PAIN, RELIEF AFFORDED. SLEPT INTERMITTENTLY.IVF INFUSING WELL, DUE MEDS GIVEN AND TOLERATED WELL.
[2021-01-16] MEDS: IV NS 1000 ML 1,000 ML IV PRN ×2 (04:21→19:06)
[2021-01-16] MEDS: CEFEPIME HCL 1 G in IV DEXTROSE 5% 50 ML IV SCH ×3 (05:31→21:42)
[2021-01-16 06:00] VITALS: BP 152/87
--- NOTE | 2021-01-16 06:15 | NUR ---
HAD A QUIET NOC.IVF INFUSING WELL.
[2021-01-16] MEDS: PANTOPRAZOLE SODIUM 40 MG TABLET.DR PO SCH ×2 (07:09→16:07)
[2021-01-16] MEDS: ALBUTEROL SULFATE 2.5 MG/3 ML NEBU NEB SCH ×4 (07:52→19:50)
[2021-01-16] MEDS: IPRATROPIUM BROMIDE 0.5 MG/2.5 ML NEBU NEB SCH ×4 (07:52→19:50)
[2021-01-16] MEDS: LIDOCAINE 5% PATCH TD SCH (08:00)
[2021-01-16] MEDS: DOCUSATE SODIUM 100 MG CAPSULE PO SCH ×2 (08:01→20:20)
[2021-01-16 12:03] VITALS: BP 136/80
[2021-01-16 16:10] VITALS: BP 135/71
[2021-01-16] MEDS: BENZONATATE 100 MG CAPSULE PO PRN (16:26)
[2021-01-16] MEDS: PRAMIPEXOLE 0.25 MG TABLET PO SCH (17:06)
--- NOTE | 2021-01-16 19:00 | NUR ---
Patient report received from casino shift manager. Patient seen resting in bed. Alert and oriented x 4. Reported mild pain in her lower back. Able to resolve with repositioning. Patient also stated occasional shortness of breath, comfortable at this time with 2L of oxygen. Patient is ambulatory. Has a midline 18g on the right upper arm currently running N/S at 75cc an hour. bed in low and locked position. Call light with in reach.
[2021-01-16 20:12] VITALS: BP 114/77
[2021-01-16] MEDS: ENOXAPARIN SODIUM 40 MG/0.4 ML DISP.SYRIN SQ SCH (20:21)
--- NOTE | 2021-01-16 21:00 | NUR ---
Lovenox held per MD order. Patient scheduled for thoracentesis 01/17/21.
[2021-01-17] MEDS: HYDROMORPHONE 1 MG/1 ML DISP.SYRIN IV PRN ×2 (01:52→22:31)
[2021-01-17 04:12] VITALS: BP 114/67
[2021-01-17] MEDS: CEFEPIME HCL 1 G in IV DEXTROSE 5% 50 ML IV SCH ×3 (05:09→22:31)
--- NOTE | 2021-01-17 05:53 | NUR ---
Patient slept throughout the night. Woke up once for pain. Given ordered Dilaudid. Iv fluids and medications given as ordered. Patient NPO for thoracentesis. No reports of pain or shortness of breath at this time. Patient is on 2L of oxygen, becomes short of breath without it.
[2021-01-17] MEDS: PANTOPRAZOLE SODIUM 40 MG TABLET.DR PO SCH ×2 (06:22→17:15)
[2021-01-17] MEDS: IPRATROPIUM BROMIDE 0.5 MG/2.5 ML NEBU NEB SCH ×4 (07:48→19:36)
[2021-01-17] MEDS: ALBUTEROL SULFATE 2.5 MG/3 ML NEBU NEB SCH ×4 (07:48→19:36)
--- NOTE | 2021-01-17 08:28 | NUR ---
Radiology contacted to f/up schedule of US guided thoracentesis. [facility] tech not yet in, will call us this AM when he is in to schedule thoracentesis. Per Dr. Kohler, okay to not put patient on NPO for thoracentesis. AM breakfast tray provided to patient.
[2021-01-17] MEDS: DOCUSATE SODIUM 100 MG CAPSULE PO SCH ×2 (08:46→22:30)
[2021-01-17] MEDS: LIDOCAINE 5% PATCH TD SCH (08:46)
[2021-01-17] MEDS: IV NS 1000 ML 1,000 ML IV PRN (08:47)
[2021-01-17 11:43] VITALS: BP 133/61
--- NOTE | 2021-01-17 14:30 | NUR ---
Radiologist and [facility] tech at bedside for US-guided thoracentesis. Tolerated well, order for STAT CXR also in place, radiology notified.
--- NOTE | 2021-01-17 14:40 | NUR ---
Sent thoracentesis specimen to lab. Able to aspirate 60cc of fluids. Per radiologist, therea re more fluids but they are in different sacs and unable to aspirate.
[2021-01-17 16:00] VITALS: BP 111/66
[2021-01-17] MEDS: PRAMIPEXOLE 0.25 MG TABLET PO SCH (17:15)
--- NOTE | 2021-01-17 18:49 | NUR ---
Patient remained stable throughout the shift. Alert and oriented x 4, cooperative and participatory in care. Kept on O2 2 LPM, with no acute distress. Tolerated all meals and medications.
[2021-01-17 20:12] VITALS: BP 145/84
[2021-01-17] MEDS: ENOXAPARIN SODIUM 40 MG/0.4 ML DISP.SYRIN SQ SCH (22:37)
[2021-01-18 04:12] VITALS: BP 113/69
[2021-01-18] MEDS: PANTOPRAZOLE SODIUM 40 MG TABLET.DR PO SCH ×2 (06:19→18:15)
[2021-01-18] MEDS: CEFEPIME HCL 1 G in IV DEXTROSE 5% 50 ML IV SCH ×3 (06:19→21:29)
[2021-01-18] MEDS: IPRATROPIUM BROMIDE 0.5 MG/2.5 ML NEBU NEB SCH ×4 (07:14→20:35)
[2021-01-18] MEDS: ALBUTEROL SULFATE 2.5 MG/3 ML NEBU NEB SCH ×4 (07:14→20:35)
--- NOTE | 2021-01-18 07:58 | NUR ---
Awake, alert, oriented x 4. sitting on the chair. O2 at 1L/NC with O2 sat of 95%. Wean off O2, Room air O2 sat 93-94%. Dr. Kohler seen and examined patient.
[2021-01-18] MEDS: DOCUSATE SODIUM 100 MG CAPSULE PO SCH ×2 (08:29→20:39)
[2021-01-18] MEDS: LIDOCAINE 5% PATCH TD SCH (08:29)
[2021-01-18] MEDS: BENZONATATE 100 MG CAPSULE PO PRN (11:19)
[2021-01-18 11:47] VITALS: BP 146/83
[2021-01-18 15:34] VITALS: BP 134/81
--- NOTE | 2021-01-18 16:00 | NUR ---
Patient requested for [employer] Machine Helper. Consult ordered, spoke with Honey, will see patient tomorrow
[2021-01-18] MEDS: PRAMIPEXOLE 0.25 MG TABLET PO SCH (18:15)
[2021-01-18] MEDS: IV NS 1000 ML 1,000 ML IV PRN (18:15)
--- NOTE | 2021-01-18 18:36 | NUR ---
Room air 93%, not in distress. IVF infusing
--- NOTE | 2021-01-18 19:45 | NUR ---
Received patient resting in bed. Alert x4 .No s/s of distress noted.On RA.Denies pain. Midline on left upper arm patent and intact with IVF running at 75 ml/hr.Tolerated well.Continue safety measures. Call light with in reach.Will continue to monitor.
[2021-01-18 20:03] VITALS: BP 130/58
[2021-01-18] MEDS: ENOXAPARIN SODIUM 40 MG/0.4 ML DISP.SYRIN SQ SCH (20:40)
[2021-01-19 04:03] VITALS: BP 120/70
[2021-01-19] MEDS: CEFEPIME HCL 1 G in IV DEXTROSE 5% 50 ML IV SCH (05:42)
[2021-01-19] MEDS: PANTOPRAZOLE SODIUM 40 MG TABLET.DR PO SCH (06:01)
[2021-01-19] MEDS: IV NS 1000 ML 1,000 ML IV PRN (06:01)
[2021-01-19] MEDS: IPRATROPIUM BROMIDE 0.5 MG/2.5 ML NEBU NEB SCH ×2 (07:31→11:57)
[2021-01-19] MEDS: ALBUTEROL SULFATE 2.5 MG/3 ML NEBU NEB SCH ×2 (07:31→11:57)
[2021-01-19] MEDS: DOCUSATE SODIUM 100 MG CAPSULE PO SCH (08:08)
[2021-01-19] MEDS: LIDOCAINE 5% PATCH TD SCH (08:09)
--- NOTE | 2021-01-19 10:32 | NUR ---
Patient refused lab draw x2. Armored Vehicle Officer explained the need for the blood draw. Patient stated she doesn't need her blood drawn. Patient stated her "blood is ok and she doesn't need more tests done."
[2021-01-19] MEDS ORDERED: ALBU18HF2 INH (10:49)
[2021-01-19] MEDS ORDERED: LIDO30AD10 TD (10:49)
[2021-01-19 11:52] VITALS: BP 118/74
--- NOTE | 2021-01-19 13:10 | NUR ---
Discharged patient to home. AOx4. On room air. No signs of acute distress. Patient denies pain/ discomfort at this time. Discharge instructions given and discharge documents signed. Belongings accounted for and belongings list signed. IV access removed. ID armband removed. Patient wheeled to hospital parking lot.
== END 2021-01-19 13:00 | disposition home or self-care (01) | DRG 871 ==
LOC: ER 13:36 → TELE3 16:13 → MEDSURG3 01-12 08:20
PROVIDERS: ADMIT Nurse Practitioner Acute Care; ATTEND Nurse Practitioner Acute Care
PROC: 05H633Z Insertion of Infusion Device into Left Subclavian Vein, Percutaneous Approach (ICD-10-PCS; 2021-01-13)
PROC: B547ZZA Ultrasonography of Left Subclavian Vein, Guidance (ICD-10-PCS; 2021-01-13)
PROC: 0W993ZX Drainage of Right Pleural Cavity, Percutaneous Approach, Diagnostic (ICD-10-PCS; principal; 2021-01-17)
DX: A41.9 Sepsis, unspecified organism (principal); J15.9 Unspecified bacterial pneumonia; J96.01 Acute respiratory failure with hypoxia; J91.8 Pleural effusion in other conditions classified elsewhere; E44.0 Moderate protein-calorie malnutrition; J98.11 Atelectasis; Z20.822 Contact with and (suspected) exposure to COVID-19; E66.9 Obesity, unspecified; F41.9 Anxiety disorder, unspecified; G25.81 Restless legs syndrome; K44.9 Diaphragmatic hernia without obstruction or gangrene; E88.09 Other disorders of plasma-protein metabolism, not elsewhere classified; Z68.32 Body mass index [BMI] 32.0-32.9, adult; R07.81 Pleurodynia; R74.01 Elevation of levels of liver transaminase levels; J45.909 Unspecified asthma, uncomplicated; S29.011A Strain of muscle and tendon of front wall of thorax, initial encounter; K76.0 Fatty (change of) liver, not elsewhere classified; X58.XXXA Exposure to other specified factors, initial encounter; Y93.9 Activity, unspecified; Y92.89 Other specified places as the place of occurrence of the external cause
CPT/HCPCS: 32555; 36415; 36600; 70030-TC; 71045; 71275; 76604; 76700; 82785; 83605; 83615; 83735; 83986; 84100; 84155; 85025; 85610; 85730; 86140; 86480; 86704; 86705; 86706; 86708; 86709; 86803; 87040; 87070; 87075; 87086; 87205; 87400; 93005; 94640; 94664; A4663; A9150; G0378; J0456; J0692; J0696; J1170; J1650; J3590; J7030; J7040; J7050; J7060; J7120; Q0144; Q9967